=== PATIENT | female | born 1945 | race Caucasian/White ===

== ENCOUNTER 2016-12-05 08:54 | Day surgery (SDC) | payer MEDICARE, OTHER ==
[~2016-12-05] VITALS: Ht 172.7 cm; Wt 63.5 kg
[~2016-12-05 08:54] MED LIST: 0.9% Sodium Chloride 1,000 ML IV SCH; ASCO-294 PO; CALC600T12 PO; CHOL100045 PO; LUTE20CA8 PO; MAGN250T PO; PANT40TA3 PO; SUCR1TAB30 PO; Sodium Chloride LOK Flush 10 mL Syringe IV PRN; VITA-230 PO; VITA-242 PO; VITA400C64 PO; fentaNYL-PF 50 mCg/mL 2 mL Inj IVPUSH PRN
[2016-12-05 09:19] VITALS: BP 134/78; PULSE 56; RESP 14; O2SAT 100
--- NOTE | 2016-12-05 10:20 | PCM.ENDEGD ---
EGD Date of Service: Dec 05, 2016 Physician Levi Gómez MD Pre Procedure Diagnosis: Reflux Post Procedure Dx & Findings: Possible Newby's Procedure Esophagogastroduodenoscopy PROCEDURE IN DETAIL: The patient was placed in left lateral decubitus position. Bite block was placed. Scope lubricated, placed in posterior pharynx, passed through the cricopharyngeus and esophagus, slowly advanced the entire length of the gastric pouch, pylorus was identified, scope passed through the pylorus and descending portion of duodenum, withdrawn in the antrum, retroflexed upon itself for view of fundus and cardia. Scope was then withdrawn through the oropharynx. Esophagus appeared normal except at the Z line there were slight irregularity. Narrow banding use and it appears there could be a short segment Newby's. The length is probably less than 2 cm. Biopsy obtained per protocol; 4 quadrant biopsies every 2 cm. Stomach appeared normal. Retroflexion was done. Stomach was easily inflatable and deflatable using air. Cardia body antrum and pylorus were visualized. Scope further advanced to the distal duodenum. Duodenum showed normal villous structures with normal folds. Impression Possible Newby's Recommendation Continue PPI Presedation Assessment Risks and Benefits Informed consent was obtained from the patient after all risks and benefits including but not limited to drug reaction, infection, pain, bleeding, perforation, as well as alternatives were discussed. Patient monitoring Continuous pulse oximetry, cardiac monitoring, blood pressure monitoring, IV access, and oxygen at 2L per nasal cannula. Periprocedural Fentanyl: Fentanyl 75mcg Incrementally Midazolam: Midazolam 3mg Incrementally Complications There were no periprocedural complications identified. Post Procedure Plan Post Procedure Recommendations 1. Restrict activities today. 2. Resume normal activities in the morning. 3. Resume medications. 4. GERD behavioral modification: - Avoid fatty, acidic, spicy, large meals - Do not lie down after meals - Do not eat or drink anything for at least 2 1/2 hours before going to bed at night - Discontinue tobacco and alcohol - Decrease or avoid caffeine - Avoid chocolate and mints - Decrease weight - Avoid aspirin and non steroidal anti-inflammatory agents (NSAID) such as Aleve, Advil, Mobic, Naproxen, Ibuprofen, etc 5. Add proton pump inhibitor. Take 30 minutes before 1st meal of the day. 6. Patient informed of normal post procedure side effects as bloating, drowsiness, blood streaking in the stool 7. If gastric biopsy reveal H.pylori, continue with appropriate treatment 8. If small bowel biopsy reveals celiac, continue with appropriate treatment 9. Please don't hesitate to call me with any questions Levi Gómez MD Dec 05, 2016 10:20
[2016-12-05 10:53] VITALS: BP 122/70; PULSE 64; RESP 12; O2SAT 98
--- NOTE | 2016-12-05 10:53 | PCM.ENDCOL ---
Colonoscopy Date of Service: Dec 05, 2016 Physician Levi Gómez MD Pre Procedure Diagnosis: Screening Post Procedure Dx & Findings: Polyp hemorrhoids diverticuliti Procedure Colonoscopy Prep adequate Withdrawal 14 minutes PROCEDURE IN DETAIL: After unremarkable rectal examination Olympus video colonoscope was inserted patient's anal canal and was advanced to cecum. Landmarks are identified including the ileocecal valve and appendiceal orifice. Scope was withdrawn systematically. The mucosa of the cecum, ascending, transverse, descending, sigmoid, rectal mucosa lined with whitish, pink, smooth, glistening, normal-appearing mucosa, normal fine branching, underlying vascularity, normal haustra. The patient tolerated procedure and was transported to observation area. In the ascending colon there was a less than 1 mm polyp which was removed completely using cold forcep. In the transverse colon there was a 3 mm polyp which was resected completely using cold snare. In the rectum there was less than 1 mm polyp which was resected completely using cold forcep. In the sigmoid colon there were multiple medium sized diverticuli. In the rectum retroflexion was done which showed hemorrhoids. Anal canal was inspected carefully on the way out and hemorrhoids are noted. Impression Polyp 3 status post complete removal Hemorrhoids Diverticuli Recommendation Repeat colonoscopy 3 years Diverticular diet Presedation Assessment Risks and Benefits Informed consent was obtained from the patient after all risks and benefits including but not limited to drug reaction, infection, pain, bleeding, perforation, as well as alternatives were discussed. Patient monitoring Continuous pulse oximetry, cardiac monitoring, blood pressure monitoring, IV access, and oxygen at 2L per nasal cannula. Complications There were no periprocedural complications identified. Post Procedure Plan Post Procedure Recommendations 1. Restrict activities today. 2. Resume normal activities in the morning. 3. Resume medications. 4. Patient informed of normal post procedure side effects as bloating, drowsiness, blood streaking in the stool. 5. average risk CRCS. If colon polyps come back as: -Hyperplastic- can repeat colonoscopy in 10 years -Tubular adenoma- repeat colonoscopy in 5 years -Tubulovillous/villous adenoma- repeat colonoscopy in 3 years -If any dysplasia- return to clinic as soon as possible 6. Please don't hesitate to call me with any questions. Levi Gómez MD Dec 05, 2016 10:53
[2016-12-05 11:03] VITALS: BP 122/70; PULSE 59; RESP 14; O2SAT 100
[2016-12-05 11:11] VITALS: BP 133/69; PULSE 62; RESP 16; O2SAT 100
--- NOTE | 2016-12-06 13:22 | PATH ---
SURGICAL PATHOLOGY Attending Physician:Levi Gómez M.D. CASE STATUS: Signed Out PATIENT NAME: DEE GURROLA PID: [id number] : 1945 DATE COLLECTED:12/05/2016 15:51 SPECIMEN: 1: Esophagus, Biopsy 2: Colon, Biopsy 3: Colon, Biopsy 4: Rectum, Biopsy CLINICAL HISTORY: 1.GE JUNCTION 2.ASCENDING COLON POLYP 3.TRANSVERSE COLON POLYP 4.RECTAL POLYP FINAL DIAGNOSIS: 1.GASTROESOPHAGEAL JUNCTION BIOPSY: FRAGMENT OF SQUAMOUS MUCOSA AND GASTRIC OXYNTIC-TYPE MUCOSA WITH MILD CHRONIC INFLAMMATION. Negative for specialized metaplasia of Newby' s-type esophagus. Negative for dysplasia and malignancy. Eosinophils are not increased. 2.ASCENDING COLON POLYP: TUBULAR ADENOMA. 3.TRANSVERSE COLON POLYP: TUBULAR ADENOMA. 4.RECTAL POLYP: HYPERPLASTIC POLYP. ICD10 CODE D12.2 GROSS DESCRIPTION: The specimen is received in four formalin filled containers labeled with the patient's name. 1). The specimen is sublabeled "GE junction" and consists of 2 portions of tissue which aggregate to 0.2 x 0.2 x 0.2 CM. The specimen is entirely submitted in cassettes 1A. 2). The specimen is sublabeled "ascending colon polyp" and consists of a 0.2 x 0.2 x 0.2 CM portion of tissue which is entirely submitted in cassette 2A. 3). The specimen is sublabeled "transverse colon polyp" and consists of a 0.5 x 0.4 x 0.3 CM portion of tissue which is entirely submitted in cassette 3A. 4). The specimen is sublabeled "rectal polyp" and consists of a 0.3 x 0.3 x 0.2 CM portion of tissue which is entirely submitted in cassette 4A. 12/05/2016 DAC MICRO DESCRIPTION: See diagnosis. ICD-9 CODES: CPT CODES: 1: 17266 2: 50506 3: 63048 4: 07991 Electronically Signed Out Devin Ayoub MD [facility] Pathology [facility] [address], [place] [address] Technical component performed at [facility], [facility] [address], [place], [address]
== END 2016-12-05 23:59 | disposition home or self-care (01) ==
LOC: END 08:54
PROVIDERS: ATTEND Internal Medicine
DX: Z12.11 Encounter for screening for malignant neoplasm of colon (principal); D12.2 Benign neoplasm of ascending colon; D12.3 Benign neoplasm of transverse colon; K62.1 Rectal polyp; K64.8 Other hemorrhoids; K57.30 Diverticulosis of large intestine without perforation or abscess without bleeding; K29.50 Unspecified chronic gastritis without bleeding; K21.9 Gastro-esophageal reflux disease without esophagitis
CPT/HCPCS: 43239; 45380; 45385; 88305; 99153; G0500; J2250; J3010; J7030